=== PATIENT | female | born 1955 | race Caucasian/White ===

== ENCOUNTER 2019-10-03 15:24 | Outpatient (CLI) | payer OTHER, SELFPAY ==
--- NOTE | 2019-10-03 15:28 | ECG_ITS ---
Measurements Intervals [place] Rate: 76 P: 56 MA: 162 QRS: 5 QRSD: 90 T: 17 QT: 355 QTc: 400 Interpretive Statements SINUS RHYTHM VOLTAGE CRITERIA FOR LVH CONSIDER INFERIOR INFARCT, AGE INDETERMINATE BASELINE ARTIFACT- I, II, AVR, AVL, AVF ABNORMAL ECG Electronically Signed On 10-03-2019 15:42:36 ZUMBA INSTRUCTOR by Tiburcio Mata D.O.
== END 2019-10-03 15:25 | disposition home or self-care (01) ==
LOC: ANHSURGERY 15:28
PROVIDERS: PCP Family Medicine; Visit Provider Orthopaedic Surgery
DX: E78.00 Pure hypercholesterolemia, unspecified (principal); R94.31 Abnormal electrocardiogram [ECG] [EKG]
CPT/HCPCS: 93005

== ENCOUNTER 2019-10-11 01:52 | Day surgery (SDC) | payer OTHER, SELFPAY ==
[2019-10-01 15:51] VITALS: BMI 33.0
[2019-10-11] VITALS (8 sets, daily range): BP systolic 161–178; BP diastolic 50–101; PULSE 70–83; RESP 12–20; TEMP 36.2–36.6; O2SAT 92–100
--- NOTE | ~2019-10-11 | XR_ITS ---
EXAMINATION: XR surgery orthopedic EXAM DATE: 10/11/2019 09:07 INDICATION: Left knee medial subchondroplasty. TECHNIQUE: Fluoroscopy used during XR surgery orthopedic performed by Dr. Leoncio Vernon MD. The DAP for this procedure was 16 cGycm2. No prior FINDINGS: There are images of knee and instrumentation. Correlate with procedure note. IMPRESSION: Fluoroscopy used during XR surgery orthopedic. Reviewed, dictated and finalized at location A. CAL RECORD CODER
[2019-10-11] MEDS: LACTATED RINGERS 1,000 ML 30 ML IV CONT ×2 (06:35→09:05)
--- NOTE | 2019-10-11 06:52 | WPDANESEPPF ---
Anes - Initial Pre Proc Eval Procedure: Operation Date: 10/11/19 07:30 Proposed Procedures p Left Knee Arthroscopy, Partial Medial Meniscectomy, Partial Lateral Meniscectomy, Chondroplasty, Synovectomy, Medial Femoral Condyle, Subchondroplasty, Proceed As Indicated - Leoncio Vernon MD Date/Time: 10/11/19 06:52 Surgeon: Leoncio Vernon MD Pre Op Diagnosis: Left Knee Pain,medial lateral meniscal tear Patient Data Age: 64 Gender: F Height: 5 ft 6 in Weight: 92.99 kg Allergies Allergy/AdvReac Type Severity Reaction Status Date / Time Penicillins Allergy Unknown Unknown Verified 10/01/19 15:45 sulfamethoxazole Allergy Unknown Rash Verified 10/01/19 15:46 [From Bactrim] trimethoprim [From Bactrim] Allergy Unknown Rash Verified 10/01/19 15:46 Home Medications Medication Instructions Recorded Confirmed Type atorvastatin 20 mg tablet 20 mg PO DAILY #90 tablet 07/22/19 10/01/19 Rx aspirin 81 mg tablet,delayed 81 mg PO DAILY 09/20/19 10/01/19 History release omega-3 fatty acids-fish oil 360 1 cap PO BID 09/20/19 10/01/19 History mg-1,200 mg capsule calcium carbonate-vitamin D3 1 cap PO DAILY 10/01/19 10/01/19 History [Calcium 600 with Vitamin D3] cholecalciferol (vitamin D3) 2,000 unit PO DAILY 10/01/19 10/01/19 History pilocarpine HCl 1 drp OPHTHALMIC (EYE) PRN PRN 10/01/19 10/01/19 History Patient hx anesthesia problems: none Family hx anesthesia problems: none PMFSH Past Medical History Medical History Acute medial meniscus tear of left knee Arthritis of knee, left Lateral meniscus tear, current Mixed hyperlipidemia Pathological fracture of femur Sleep apnea Sprain of medial collateral ligament of left knee Vitamin D deficiency Weight gain Family History Family History Mother Family history of glaucoma Acute myocardial infarction, Onset Age: 80 Father Acute myocardial infarction, Onset Age: 61 Family history of rheumatic fever Other Diabetes mellitus Hypertension Social History Social History Smoking status: Former smoker Second hand tobacco smoke exposure: No Smoking end date: 08/22/88 Alcohol intake: current Anes - Eval Final PreProcedure Day of Procedure 10/11/19 06:52 Patient weight: obese Heart: regular rate and rhythm Lungs: clear to auscultation Airway: Mallampati scale class II Neurological: alert and oriented Last oral intake: >/= 8 hours ASA classification: III Emergent: no Anesthetic plan: proceed Anesthesia type and monitoring: general LMA and standard monitoring Informed Consent: The patient's anesthetic plan and its attendant risks and benefits were discussed with the patient/family/POA. Questions were solicited and answers provided to the satisfaction of the patient/family/POA.
--- NOTE | 2019-10-11 06:56 | WPDHPUPDATE1 ---
History and Physical Update Update Date/Time: 10/11/19 06:56 History and Physical has been reviewed, including an updated exam of the patient. There are NO changes in the patient's condition. Risks, benefits, and alternatives have been discussed and questions answered. Patient agrees to proceed with procedure.
[2019-10-11] MEDS: ceFAZolin 2 GM/D5W 50 ML 2 GM/50 ML BAG IVPB (07:31)
[2019-10-11] MEDS: IBUPROFEN IV 800 MG/200 ML 800 MG/200 ML BAG 400 MG IVPB (07:39)
[2019-10-11] MEDS: BUPIVACAINE/EPINEPHRINE 0.5% 10 ML VIAL INFILTRATE (07:43)
--- NOTE | 2019-10-11 09:31 | PM.PROC ---
Procedure Note - Detailed Date of procedure: 10/11/19 Pre-op diagnosis: Left Knee Pain,medial lateral meniscal tear Medial femoral condyle insufficiency fracture, chondromalacia patellofemoral and medial compartments Post-op diagnosis: same Procedure performed: Left knee arthroscopy with partial medial and lateral meniscectomy, chondroplasty, synovectomy, sub chondroplasty medial femoral condyle Description of procedure: Indications: 64-year-old woman with severe left knee pain. Injury 2 months ago. MRI shows medial and lateral meniscus tear, chondromalacia insufficiency fracture medial femoral condyle. Patient failed non operative treatment with therapy, home exercises, activity modifications and anti-inflammatories. Pain on a daily basis with weight-bearing activity. Presents now for operative treatment. Informed consent given by patient. Operative extremity marked in preoperative holding area. Patient received intravenous antibiotics. Patient brought to operating room and underwent general anesthetic by anesthesia team. Positioned supine on operating room table. Left leg placed into a posterior thigh leg garza. Foot of the table dropped to 90? and right leg padded out of the field. Time-out performed confirming patient, site of surgery and plan. Left knee prepped and draped in usual sterile surgical fashion using ChloraPrep skin solution. Standard arthroscopic portals made by using a 11 blade knife for the anterior lateral portal 1st. Capsule penetrated bluntly. Camera and inflow started. The below operative findings noted. Intra-articular visualization used to position the anterior medial portal using 22 gauge spinal needle. A 11 blade knife used for the skin and blunt penetration of the capsule. 4.7 millimeter arthroscopic shaver introduced and partial medial meniscectomy of the loose and torn portion performed. Shaver then positioned in the lateral compartment and partial lateral meniscectomy performed. Edge of meniscus completed with arthroscopic Wand. Arthroscopic Wand used to perform chondroplasty of the patellofemoral articulation and the medial femoral condyle. Shaver reintroduced and a synovectomy performed of the anterior fat pad and extensive synovium as well as medial and lateral plica. Bleeding points coagulated with Wand. Knee inspected, no loose pieces noted. 1 liter of irrigant infused and suction out. Arthroscopic cannulas removed. Skin closed with 4 nylon interrupted suture. Local anesthetic with 0.25% Marcaine. Fluoroscopy then position for the medial femoral condyle subchondroplasty. Stab incision made over the medial side of the knee and trocar placed into the medial femoral condyle and verified with image intensification. Calcium sulfate prepared on the back table and injected into the medial femoral condyle. Fluoroscopy views confirmed injection of the material into the condyle. Trocar removed and wound thoroughly irrigated with antibiotic solution. Skin closed with 4 nylon interrupted suture. Sterile dressing applied. Patient awoken from anesthesia, extubated and taken to recovery room in stable condition. All sponge needle and instrument counts correct at the end of the case. Implants: Harmeet calcium sulfate injectable artificial bone graft Anesthesia: GLMA Surgeon: Leoncio Vernon MD Estimated blood loss (mL): 5 Drains: No Packing: No Pathology: none sent Complications: None Condition: stable Disposition: PACU Findings: Grade 2 chondromalacia medial femoral condyle, grade 3 chondromalacia patella and patella foot femoral articulation, minimal degenerative changes of lateral femoral condyle. Partial tear anterior horn and body lateral meniscus, partial tear of the body and anterior horn of the medial meniscus. PCL and ACL intact. Significant synovitis peripatellar, medial and lateral compartment, anterior and lateral anterior portions.
--- NOTE | 2019-10-11 11:33 | SUR.PHASEII ---
1030 dr beasley office notified about getting a order for a walker, they will send it to [facility]. 1035 PT notified to do walker training with pt
== END 2019-10-11 11:38 | disposition home or self-care (01) ==
PROVIDERS: PCP Family Medicine; Visit Provider Orthopaedic Surgery
PROC: (CPT 29870; principal; 2019-10-11 07:30)
DX: S83.242A Other tear of medial meniscus, current injury, left knee, initial encounter (principal); S83.282A Other tear of lateral meniscus, current injury, left knee, initial encounter; M84.452A Pathological fracture, left femur, initial encounter for fracture; X50.0XXA Overexertion from strenuous movement or load, initial encounter; E78.2 Mixed hyperlipidemia; G47.30 Sleep apnea, unspecified; E55.9 Vitamin D deficiency, unspecified; Z79.82 Long term (current) use of aspirin; Z87.891 Personal history of nicotine dependence; E66.9 Obesity, unspecified; Z68.33 Body mass index [BMI] 33.0-33.9, adult
CPT/HCPCS: 29880; 97116; J0690; J1100; J1741; J2250; J2405; J2704; J3010; J7120

== ENCOUNTER 2022-03-11 12:09 | Outpatient (CLI) | payer MEDICARE, SELFPAY ==
--- NOTE | 2022-03-11 12:27 | ECG_ITS ---
Measurements Intervals [place] Rate: 74 P: 69 ME: 146 QRS: 49 QRSD: 91 T: 29 QT: 364 QTc: 405 Interpretive Statements SINUS RHYTHM NORMAL ECG Electronically Signed On 03-11-2022 16:16:48 CDT by Tiburcio Mata D.O.
== END 2022-03-11 12:10 | disposition home or self-care (01) ==
LOC: ANHCARD 12:12
PROVIDERS: PCP Family Medicine; Visit Provider Family Medicine
DX: I10 Essential (primary) hypertension (principal)
CPT/HCPCS: 93005

== ENCOUNTER 2022-06-24 09:14 | Outpatient (CLI) | payer MEDICARE, SELFPAY ==
--- NOTE | ~2022-06-24 | DEXA_ITS ---
Bone Density Report Name: HALLE ELI Age: 67 Sex: Female Ethnicity: White Date of : 1955 Indication: postmenopausal; screening for osteoporosis; prior fracture; Referring Provider: SATINDER ASH Study: Bone densitometry was performed. Exam Date: June 24, 2022 Accession number: [id number] Bone Density: Region BMD T-score Z-score Classification AP Spine(L1-L4) 0.874 -1.6 0.4 Osteopenia Femoral Neck (Left) 0.622 -2.0 -0.3 Osteopenia Total Hip (Left) 0.800 -1.2 0.3 Osteopenia Femoral Neck (Right) 0.610 -2.1 -0.4 Osteopenia Total Hip (Right) 0.759 -1.5 -0.1 Osteopenia Total Hip Mean 0.779 -1.4 0.1 Osteopenia World Health Organization criteria for BMD impression classify patients as: Normal (T-score at or above -1.0), Osteopenia (T-score between -1.0 and -2.5), or Osteoporosis (T-score at or below -2.5). 10-year Fracture Risk(1): Major Osteoporotic Fracture 19% Hip Fracture 3.4% Reported Risk Factors: [place] (), Neck BMD=0.610, BMI=30.3, previous fracture (1) FRAX(R) Version 3.08. Fracture probability calculated for an untreated patient. Fracture probability may be lower if the patient has received treatment. Clinical Information Provided by Patient: Has had a low trauma fracture Has used the following medications: Vitamin D, Calcium Patient maximum height was 65 Menopause Age: 49 Drinks caffeinated beverages Onset of menses at age 11 Number of children 0 Impression: The patient has low bone mass, based on the Right Femoral Neck T-score. The patient has an estimated ten-year risk of hip fracture of 3.4% and an estimated ten-year risk of major fracture of 19%, based on the WHO FRAX algorithm. The patient has risk factors, including: previous fracture. Discussion: BONE DENSITY IS LOW AT ONE OR MORE SKELETAL SITES. THE PATIENT'S BMD AND CLINICAL RISK FACTORS CONTRIBUTE TO THIS PATIENT'S INCREASED RISK OF FRACTURE. This patient's lowest T-score is low at one or more skeletal sites. It meets the World Health Organization's (WHO) criteria for ?low bone mass? (T-score between -1.0 and -2.5). The patient's 10-year risk of hip fracture as calculated by FRAX exceeds the threshold where pharmacological therapy is recommended by the National Osteoporosis Foundation (NOF). However, all treatment decisions require clinical judgment and consideration of individual patient factors, including patient preferences, comorbidities, previous drug use, risk factors not captured in the FRAX model (e.g., frailty, falls, vitamin D deficiency, increased bone turnover, interval significant decline in bone density) and possible under or overestimation of fracture risk by FRAX. The patient should follow a healthful lifestyle (good nutrition with adequate calcium and vitamin D, and appropri
== END 2022-06-24 09:15 | disposition home or self-care (01) ==
PROVIDERS: PCP Family Medicine; Visit Provider Physician Assistant
DX: Z78.0 Asymptomatic menopausal state (principal); M85.88 Other specified disorders of bone density and structure, other site; M85.852 Other specified disorders of bone density and structure, left thigh; M85.851 Other specified disorders of bone density and structure, right thigh
CPT/HCPCS: 77080

== ENCOUNTER 2022-12-09 13:23 | Outpatient (CLI) | payer MEDICARE, SELFPAY ==
--- NOTE | ~2022-12-09 | XR_ITS ---
XR chest 2V DATE: 12/09/2022 13:49 INDICATION: Nicotine dependence TECHNIQUE: PA and lateral views COMPARISON: 12/20/2017 two-view chest FINDINGS: Normal heart size. No hilar or mediastinal enlargement. No pulmonary infiltrate or consolidation, pleural effusion or pulmonary vascular congestion or pneumo thorax. Osteopenia. IMPRESSION: No active cardiopulmonary disease Osteopenia Reviewed, dictated and finalized at location L.
== END 2022-12-09 13:24 | disposition home or self-care (01) ==
PROVIDERS: PCP Family Medicine; Visit Provider Physician Assistant
DX: Z87.891 Personal history of nicotine dependence (principal); M85.88 Other specified disorders of bone density and structure, other site
CPT/HCPCS: 71046

== ENCOUNTER 2023-07-22 14:28 | Outpatient (CLI) | payer MEDICARE, SELFPAY ==
--- NOTE | ~2023-07-22 | CT_ITS ---
EXAMINATION: CT lung screening DATE: 07/22/2023 14:52 INDICATION: Personal history of nicotine dependence TECHNIQUE: Computed tomography (CT) of the chest was performed without intravenous contrast. The dose -length product was 150.58 mGy-cm. Automated exposure control and iterative reconstruction technique were employed. COMPARISON: None FINDINGS: Lung bases are unremarkable. Heart size normal. There is atherosclerosis of the aorta and c oronary arteries. There are calcified granulomas of the liver and spleen. There are liver cysts. No e ndobronchial lesions. No pneumothorax. No acute osseous abnormality. Mild thoracic spondylosis. There are small 2 mm nodules in the upper lobes. There is a 3 mm left fissural nodule. IMPRESSION: 1. Lung-RADS category 2: Benign appearance or behavior. Continue annual screening with noncontrast lo w-dose chest CT in 12 months. Reviewed, dictated and finalized at location B. ECTOR IMPRESSION: 1. Lung-RADS category 2: Benign appearance or behavior. Continue annual screeni ng with noncontrast low-dose chest CT in 12 months.
== END 2023-07-22 14:29 | disposition home or self-care (01) ==
PROVIDERS: PCP Family Medicine; Visit Provider Physician Assistant
DX: Z12.2 Encounter for screening for malignant neoplasm of respiratory organs (principal); Z87.891 Personal history of nicotine dependence
CPT/HCPCS: 71271

== ENCOUNTER 2023-12-14 15:29 | Outpatient (CLI) | payer MEDICARE, SELFPAY ==
--- NOTE | ~2023-12-14 | XR_ITS ---
EXAMINATION: XR cervical spine 4-5V DATE: 12/14/2023 15:50 INDICATION: Neck pain. TECHNIQUE: 4 views of cervical spine including flexion and extension views were obtained. COMPARISON: None. FINDINGS: Bone alignment is normal. There is no abnormal motion with flexion or extension. Vertebral body heights are normal. There is mildly decreased disc height at C4-C5 and moderately decreased disc height at C5-C6 and C6-C7. There is multilevel uncovertebral joint osteoarthritis, severe bilaterall y at C5-C6 and C6-C7. There is multilevel mild facet joint osteoarthritis. There is mild central everett l stenosis at C5-C6. No prevertebral soft tissue swelling. IMPRESSION: 1. Moderate cervical spondylosis. Reviewed, dictated and finalized at location E.
== END 2023-12-14 15:30 | disposition home or self-care (01) ==
LOC: ANHIMG 15:34
PROVIDERS: PCP Family Medicine; Visit Provider Family Medicine
DX: M47.892 Other spondylosis, cervical region (principal)
CPT/HCPCS: 72050

== ENCOUNTER 2024-02-24 01:14 | Day surgery (SDC) | payer MEDICARE, SELFPAY ==
[2024-02-13 14:36] VITALS: BMI 27.8
[2024-02-24 09:26] VITALS: BP 167/75; PULSE 68; RESP 16; TEMP 35.9; O2SAT 100; BMI 27.8
[2024-02-24] MEDS: LACTATED RINGERS 1,000 ML 150 ML IV CONT (09:38)
--- NOTE | 2024-02-24 09:38 | WPDANESEPPF ---
Anes - Initial Pre Proc Eval Procedure: Operation Date: 02/24/24 15:30 Proposed Procedures p Colonoscopy - Piotr Quiroz MD Date/Time: 02/24/24 09:38 Surgeon: Piotr Quiroz MD Pre Op Diagnosis: Positive Cologuard Patient Data Age: 69 Gender: F Height: 1.68 m Weight: 78.2 kg Last Vital Signs Temp 96.6 F L 02/24/24 09:26 Pulse 68 02/24/24 09:26 Resp 16 02/24/24 09:26 BP 167/75 H 02/24/24 09:26 Pulse Ox 100 02/24/24 09:26 O2 Del Method Room Air 02/24/24 09:26 Allergies Allergy/AdvReac Type Severity Reaction Status Date / Time Penicillins Allergy Unknown Unknown Verified 02/24/24 09:25 sulfamethoxazole Allergy Unknown Rash Verified 02/24/24 09:25 [From Bactrim] trimethoprim [From Bactrim] Allergy Unknown Rash Verified 02/24/24 09:25 Home Medications Medication Instructions Recorded Confirmed Type aspirin 81 mg tablet,delayed 81 mg PO DAILY 09/20/19 02/24/24 History release (Adult Aspirin Regimen) calcium carbonate 600 mg-vitamin 1 cap PO DAILY 10/01/19 02/24/24 History D3 12.5 mcg (500 unit) capsule (Calcium 600 with Vitamin D3) pilocarpine HCl 1 % eye drops 1 drp ophthalmic (eye) PRN PRN Dry 10/01/19 02/24/24 History Eyes alendronate 70 mg tablet (Fosamax) 70 mg PO WEEKLY #12 tabs 10/24/23 02/24/24 Rx atorvastatin 20 mg tablet 20 mg PO DAILY #90 tabs 12/14/23 02/24/24 Rx losartan 50 mg tablet 50 mg PO DAILY hypertension #90 12/14/23 02/24/24 Rx tabs bimatoprost 0.01 % eye drops 1 drp LEFT EYE DAILY 02/21/24 02/24/24 History (Bebeto) Patient hx anesthesia problems: none Family hx anesthesia problems: none Results Review: All pre-operative results and documents have been reviewed as part of the pre-operative evaluation. [facility] Past Medical History Medical History Acute medial meniscus tear of left knee Arthritis of knee, left Colon cancer screening (~12/2020) Cologuard negative Glaucoma Lateral meniscus tear, current Mixed hyperlipidemia Osteopenia Diffuse, on Fosamax, started 2022 Repeat Dexa 06/2024 Pathological fracture of femur Sleep apnea Sprain of medial collateral ligament of left knee Vitamin D deficiency Weight gain Surgical History Surgical History History of arthroscopic knee surgery Family History Family History Mother Family history of glaucoma Acute myocardial infarction, Onset Age: 80 Father Acute myocardial infarction, Onset Age: 61 Family history of rheumatic fever Other Diabetes mellitus Hypertension Social History Social History Smoking packs per day: 1.5 Smoking cigarettes per day: 30.0 Years smoked: 16 Smoking pack-years: 24.00 Smoking status: Former smoker Tobacco type: cigarettes Second hand tobacco smoke exposure: No Smoking end date: 08/22/89 Alcohol intake: never Alcohol use details: Occasional Substance use: never Substance use type: does not use Lack of Transportation: No Lack of Food: Never True Current Housing: I Have Housing Concerned About Future Housing: No Difficulty Paying Gas/Electric Bills: No Difficulty Paying for Meds: No Currently Unemployed: No Education: Master's Degree or Higher Difficulty w/ Childcare or Family Care: No Living arrangements: alone Occupation/Education: retired Gender identity (if verbalized by the patient): Female Spiritual care concerns: No Anes - Eval Final PreProcedure Day of Procedure 02/24/24 09:38 Patient weight: normal Heart: regular rate and rhythm Lungs: clear to auscultation Airway: Mallampati scale class II Neurological: alert and oriented Last oral intake: >/= 8 hours ASA classification: III Emergent: no Anesthetic plan: proceed
--- NOTE | 2024-02-24 09:49 | PM.HPGS ---
History of Present Illness History of Present Illness Consent: Risks, benefits, and alternatives have been discussed and questions answered. Patient agrees to proceed with procedure. Chief complaint: Positive Cologuard Narrative: Jessica Ochoa is a 69 year old female here with + cologuard, last colonoscopy about 20 years ago Review of Systems Review of Systems: All systems reviewed & are unremarkable except as noted in HPI and below PMFSH Past Medical History Medical History (Updated 02/24/24 @ 09:49 by Piotr Quiroz MD) Acute medial meniscus tear of left knee Arthritis of knee, left Colon cancer screening (~12/2020) Cologuard negative Glaucoma Lateral meniscus tear, current Mixed hyperlipidemia Osteopenia Diffuse, on Fosamax, started 2022 Repeat Dexa 06/2024 Pathological fracture of femur Positive colorectal cancer screening using Cologuard test Sleep apnea Sprain of medial collateral ligament of left knee Vitamin D deficiency Weight gain Surgical History Surgical History History of arthroscopic knee surgery Family History Family History Mother Family history of glaucoma Acute myocardial infarction, Onset Age: 80 Father Acute myocardial infarction, Onset Age: 61 Family history of rheumatic fever Other Diabetes mellitus Hypertension Social History Social History Smoking packs per day: 1.5 Smoking cigarettes per day: 30.0 Years smoked: 16 Smoking pack-years: 24.00 Smoking status: Former smoker Tobacco type: cigarettes Second hand tobacco smoke exposure: No Smoking end date: 08/22/89 Alcohol intake: never Alcohol use details: Occasional Substance use: never Substance use type: does not use Lack of Transportation: No Lack of Food: Never True Current Housing: I Have Housing Concerned About Future Housing: No Difficulty Paying Gas/Electric Bills: No Difficulty Paying for Meds: No Currently Unemployed: No Education: Master's Degree or Higher Difficulty w/ Childcare or Family Care: No Living arrangements: alone Occupation/Education: retired Gender identity (if verbalized by the patient): Female Spiritual care concerns: No Meds Home Medications and Allergies Home Medications Medication Instructions Recorded Confirmed Type aspirin 81 mg tablet,delayed 81 mg PO DAILY 09/20/19 02/24/24 History release (Adult Aspirin Regimen) calcium carbonate 600 mg-vitamin 1 cap PO DAILY 10/01/19 02/24/24 History D3 12.5 mcg (500 unit) capsule (Calcium 600 with Vitamin D3) pilocarpine HCl 1 % eye drops 1 drp ophthalmic (eye) PRN PRN Dry 10/01/19 02/24/24 History Eyes alendronate 70 mg tablet (Fosamax) 70 mg PO WEEKLY #12 tabs 10/24/23 02/24/24 Rx atorvastatin 20 mg tablet 20 mg PO DAILY #90 tabs 12/14/23 02/24/24 Rx losartan 50 mg tablet 50 mg PO DAILY hypertension #90 12/14/23 02/24/24 Rx tabs bimatoprost 0.01 % eye drops 1 drp LEFT EYE DAILY 02/21/24 02/24/24 History (Bebeto) Allergies Allergy/AdvReac Type Severity Reaction Status Date / Time Penicillins Allergy Unknown Unknown Verified 02/24/24 09:25 sulfamethoxazole Allergy Unknown Rash Verified 02/24/24 09:25 [From Bactrim] trimethoprim [From Bactrim] Allergy Unknown Rash Verified 02/24/24 09:25 Vital Signs Vital Signs - 24 hr 02/24/24 09:26 Temperature 96.6 F L Pulse Rate 68 Respiratory Rate 16 Blood Pressure 167/75 H Pulse Oximetry 100 Oxygen Delivery Room Air Exam Const: General: comfortable and no acute distress HENMT: Face/Nose/Sinus: Normal nares present Eyes: General: appearance normal, both eyes and all related structures Neck: Neck: no JVD Resp: Auscultation: clear to auscultation bilaterally Cardio: Rate: regular rate Rhythm: regular rhythm GI:
[2024-02-24 10:07] VITALS: BP 121/58; PULSE 67; RESP 16; O2SAT 99
[2024-02-24 10:17] VITALS: BP 126/65; PULSE 64; RESP 16; O2SAT 100
[2024-02-24 10:27] VITALS: BP 146/66; PULSE 62; RESP 16; O2SAT 99
== END 2024-02-24 10:43 | disposition home or self-care (01) ==
PROVIDERS: PCP Family Medicine; Visit Provider Internal Medicine Gastroenterology
PROC: 0DJD8ZZ Inspection of Lower Intestinal Tract, Via Natural or Artificial Opening Endoscopic (ICD-10-PCS; CPT 45378; principal; 2024-02-24 15:30)
DX: R19.5 Other fecal abnormalities (principal); D12.2 Benign neoplasm of ascending colon; K64.8 Other hemorrhoids; K63.89 Other specified diseases of intestine; E78.2 Mixed hyperlipidemia; G47.30 Sleep apnea, unspecified; E55.9 Vitamin D deficiency, unspecified; Z79.82 Long term (current) use of aspirin; Z79.83 Long term (current) use of bisphosphonates; Z98.890 Other specified postprocedural states; Z87.891 Personal history of nicotine dependence; Z82.49 Family history of ischemic heart disease and other diseases of the circulatory system
CPT/HCPCS: 45385; 45380; 88305; J2704; J7120

== ENCOUNTER 2024-07-24 07:10 | Outpatient (CLI) | payer MEDICARE, SELFPAY ==
--- NOTE | ~2024-07-24 | CT_ITS ---
CT Scan of the Chest without Contrast: Clinical Indication: Lung cancer screening, nicotine dependence Technique: Contiguous sections were acquired throughout the chest without intravenous contrast. Dose reduction technique was used on this scan by utilizing automated exposure control and iterative recon struction technique. The dose-length product (DLP) was 84.16 mGy-cm. COMPARISON: 07/22/2023 Findings: There is no evidence of any significant mediastinal, hilar or axillary lymphadenopathy. The coronary artery calcifications are present. There is no evidence of pleural or pericardial effusion. Calcified right upper lobe granuloma noted. Stable tiny left fissural nodule. Images through the upper abdomen reveal calcified splenic granulomas and hepatic cysts. Impression: Stable tiny left fissural nodule, most likely benign. No suspicious abnormality. Reviewed, dictated and finalized at [facility]. FF COMPILING CLERK Impression: Stable tiny left fissural nodule, most likely benign. No suspicious abnormality .
== END 2024-07-24 07:11 | disposition home or self-care (01) ==
PROVIDERS: PCP Family Medicine; Visit Provider Family Medicine
DX: Z12.2 Encounter for screening for malignant neoplasm of respiratory organs (principal); Z87.891 Personal history of nicotine dependence
CPT/HCPCS: 71271

== ENCOUNTER 2024-07-30 08:14 | Outpatient (CLI) | payer MEDICARE, SELFPAY ==
--- NOTE | ~2024-07-30 | DEXA_ITS ---
Bone Density Report Name: HALLE ELI Age: 69 Sex: Female Ethnicity: White Date of : 1955 Indication: osteopenia; prior fracture; Referring Provider: DAVE DAY Study: Bone densitometry was performed. Exam Date: July 30, 2024 Accession number: [id number] Bone Density: Region BMD T-score Z-score Classification AP Spine(L1-L4) 0.994 -0.5 1.7 Normal Femoral Neck (Left) 0.645 -1.8 0.0 Osteopenia Total Hip (Left) 0.810 -1.1 0.5 Osteopenia Femoral Neck (Right) 0.647 -1.8 0.0 Osteopenia Total Hip (Right) 0.764 -1.5 0.1 Osteopenia Total Hip Mean 0.787 -1.3 0.3 Osteopenia World Health Organization criteria for BMD impression classify patients as: Normal (T-score at or above -1.0), Osteopenia (T-score between -1.0 and -2.5), or Osteoporosis (T-score at or below -2.5). 10-year Fracture Risk(1): Major Osteoporotic Fracture 10.0% Hip Fracture 1.7% Reported Risk Factors: [place] (), Neck BMD=0.645, BMI=26.8, previous fracture (1) FRAX(R) Version 3.08. Fracture probability calculated for an untreated patient. Fracture probability may be lower if the patient has received treatment. Previous Exams: Region Exam Age BMD T-score BMD Change BMD Change Date g/cm2 vs Baseline vs Previous AP Spine (L1-L4) 07/30/2024 69 0.994 -0.5 0.119 (13.7%)* 0.119 (13.7%)* 06/24/2022 67 0.874 -1.6 Total Hip(Left) 07/30/2024 69 0.810 -1.1 0.010 (1.3%) 0.010 (1.3%) 06/24/2022 67 0.800 -1.2 Total Hip(Right) 07/30/2024 69 0.764 -1.5 0.006 (0.7%) 0.006 (0.7%) 06/24/2022 67 0.759 -1.5 *Denotes significance at 95% confidence level, LSC for AP Spine = 0.022 g/cm2, LSC for Total Hip = 0.027 g/cm2 Clinical Information Provided by Patient: Has had a low trauma fracture Has used the following medications: Vitamin D, Calcium Patient maximum height was 65 Menopause Age: 49 Drinks caffeinated beverages Onset of menses at age 11 Number of children 0 Impression: The patient has low bone mass, based on the Left Femoral Neck T-score. The patient has an estimated ten-year risk of hip fracture of 1.7% and an estimated ten-year risk of major fracture of 10%, based on the WHO FRAX algorithm. The patient has risk factors, including: previous fracture. No significant bone loss was observed. Discussion: BONE DENSITY IS LOW AT ONE OR MORE SKELETAL SITES. This patient's lowest T-score is low at one or more skeletal sites. It meets the World Health Organization's (WHO) criteria for ?low bone mass? (T-score between -1.0 and -2.5). The patient's 10-year risk of fracture as calculated by FRAX is less than the threshold where pharmacological therapy is recommended by the National Osteoporosis Foundation (NOF). However, all treatment decisions require clinical judgment and consideration of individual patient factors, including patient preferences, comorbidities, previous drug use, risk factors not captured in the FRAX model (e.g., frailty, falls, vitamin D deficiency, increased bone turnover, interval significant decline in bone density) and possible under or overestimation of fracture risk by FRAX. The patient should follow a healthful lifestyle (good nutrition with adequate calcium and vitamin D, and appropriate weight-bearing exercise). Follow-Up: Consider repeating this study in 2 to 3 years to reassess this patient's status, or sooner if there is some new clinical indication. Reported by: LENNY on 07/30/2024 8:44:00 AM. Reviewed, dictated and finalized at location A. JONNY
== END 2024-07-30 08:15 | disposition home or self-care (01) ==
LOC: ANHIMG 08:15
PROVIDERS: PCP Family Medicine; Visit Provider Family Medicine
DX: M85.89 Other specified disorders of bone density and structure, multiple sites (principal); Z78.0 Asymptomatic menopausal state
CPT/HCPCS: 77080

== ENCOUNTER 2025-07-31 16:09 | Outpatient (CLI) | payer MEDICARE, SELFPAY ==
--- NOTE | ~2025-07-31 | CT_ITS ---
EXAMINATION:CT lung screening DATE: 07/31/2025. INDICATION: 26 pack year history of smoking. Follow-up screening exam. TECHNIQUE: Computed tomography (CT) of the chest was performed without intravenous contrast. Automated exposure control and iterative reconstruction technique were employed. The dose-length product (DLP) was 119.71 mGy-cm. COMPARISON: CT lung cancer screening chest 07/24/2024. FINDINGS: Stable 3 to 4 mm size nodule adjacent the interlobar fissure of left lung. No new or additional lesions. No hilar or mediastinal adenopathy. No effusion. Stable cyst of the liver in the right lobe and one in the left lobe. IMPRESSION: 1. Stable findings compared with prior CT examinations. Continue annual screening. Lung RADS category 2 Reviewed, dictated and finalized at location T. OR SOFTWARE DEVELOPMENT ENGINEER IMPRESSION: 1. Stable findings compared with prior CT examinations. Continue annual screeni ng. Lung RADS category 2
--- OUTSIDE RECORDS SUMMARY | 2025-07-31 20:54 | XMS_ITS | Data Portability ---
Author Organization [facility] [place] Address [address] [place] [address] [place] [address] Care Team Providers Care Learning Facilitator Name Role Phone DAVE DAY Primary Care Provider [phone] Assessment No assessment recorded. Plan of Treatment Reminders Order Date Submit Date Provider Last Modified By Organization Details Last Modified Time Details Appointments None recorded. Lab None recorded. Referral None recorded. Procedures None recorded. Surgeries None recorded. Imaging US, pelvis [address], [address], [address], [place], [address], 15:55:56 US, transvagina l [email or web address], [facility] [address], [place], [address], 15:55:56 US, pelvis [address], [facility] [address], [place], [address], 21:21:40 US, transvagina l [email or web address] [facility] [address], [place], [address], 21:21:40 Medication Orders None recorded. Patient TargetsNo targets recorded. Patient InstructionsNo instructions recorded. Reason for Referral None Reported. Results Created Date Observation Date Name Description Value Unit Range Abnormal Flag Note LastModifiedBy Organization Detail LastModifiedTime 12/28/19 24 12/28/2023 US, pelvi s No observ ation record ed. [email or web address] [place] [address], [place], [address], 12/28/2023 14:44:59 12/28/19 24 12/28/2023 US, trans vagin al No observ ation record ed. [email or web address] [place] [address], [place], [address], 12/28/2023 14:44:49 12/28/19 24 12/28/2023 US, pelvi s No observ ation record ed. [email or web address] [address], [place], [address], 12/29/2023 01:47:16 07/09/20 24 07/09/2024 US, pelvi s No observ ation record ed. [email or web address] [place] [address], [place], [address], 07/09/2024 18:04:25 07/09/20 24 07/09/2024 US, trans vagin al No observ ation record ed. [email or web address] [place] [address], [place], [address], 07/09/2024 18:04:35 07/09/20 24 07/09/2024 US, pelvi s No observ ation record ed. [email or web address] [address], [place], [address], 07/09/2024 16:33:59 Result Notes None recorded. Procedures Surgical History Date Name Laterality Status Provider Name and Address Organization Details Recorded Time 4 completed Avis B[facility] 07/11/2024 09:20:49 4 Date of Last Colonoscopy completed [facility] 07/11/2024 09:20:49 [address] [facility] 07/11/2024 09:25:42 4 Date of Last Mammogram completed [facility] 07/11/2024 09:20:49 2 Most Recent Bone Density completed [facility] 12/27/2023 14:07:55 2 Breast Biopsy completed [facility] 12/27/2023 13:59:20 0 Orthopedic Surgery completed [facility] 12/27/2023 13:59:20 9 Date of Last Pap Smear completed [facility] 12/27/2023 14:07:05 LEEP completed [facility] 12/27/2023 13:59:20 Tubal Ligation completed [facility] 12/27/2023 13:59:20 Imaging Results None recorded. Procedure Notes None recorded. Medical Equipment None Reported. Allergies Allergen ID Allergen Name Allergen Category Reaction Reaction Severity Criticality Documentation Date Start Date Code Code System Note Provider Name and Address Organization Details Recorded Time 84200 Bactrim medicatio n hives moderate Not available 12/27/2023 21063 9 RxNorm [facility] 4 13:58:53 28426 Product containin g penicilli n (product) medicatio n Not available Not available Not available 07/11/2024 53452 8001 SNOMED [facility] 4 09:24:18 Medications Name Sig Start Date Stop Date Status Note LastModified by Organization Details LastModified Time losartan 50 mg tablet active Not Available Not Available No t Available atorvastatin 20 mg tablet 07/11 completed Not Available Not Available Not Available pilocarpine 1 % eye drops 07/11 completed Not Available Not Available Not Available atorvastatin 10 mg tablet TAKE 1 TABLET BY MOUTH DAILY active Not Available Not Available No t Available alendronate 70 mg tablet active Not Available Not Available Not Available Lumigan 0.01 % eye drops active Not Available Not Available Not Available Vitals Date Recorded Body weight Body mass index (BMI) Body height Systolic And Diastolic Provider Name and Address Organization Details Last Updated DateTime 12/27/2023 43356.9 g 30.1 kg/m2 167.64 cm 160/68 mm[Hg] [facility] 12/27/2023 14:06:11 Date Recorded Body height Body mass index (BMI) Body weight Systolic And Diastolic Provider Name and Address Organization Details Last Updated DateTime 01/04/2024 167.64 cm 30.3 kg/m2 28606.37 g 157/84 mm[Hg] [facility] 01/04/2024 09:28:52 Date Recorded Body height Body mass index (BMI) Body weight Systolic And Diastolic Provider Name and Address Organization Details Last Updated DateTime 07/11/2024 167.64 cm 25.8 kg/m2 58473.78 g 142/83 mm[Hg] Avis Renteria [facility] 07/11/2024 09:24:04 Social History Question Answer Notes LastModified by Organizat ion Details LastModified Time Do You Have An Advance Directive? Yes [email or web address] Information n ot available 07/11/2024 How Many Years Have You Consumed Alcohol? 50 Information not available 12/27/2023 Are You Blind Or Do You Have Difficulty Seeing? Yes Information not available 12/27/2023 What Is Your Level Of Caffeine Consumption? Moderate Information not available 12/27/2023 How Much Tobacco Do You Chew? None Information not available 12/27/2023 In The 14 Days Before Symptom Onset, Have You Had Close Contact With A Laboratory-confirme d COVID-19 While That Case Was Ill? No Information n ot available 12/27/2023 In The 14 Days Before Symptom Onset, Have You Had Close Contact With A Person Who Is Under Investigation For COVID-19 While That Person Was Ill? No Information not available 12/27/2023 Have You Been To An Area Known To Be High Risk For COVID-19? No Information not available 12/27/2023 Are You Deaf Or Do You Have Serious Difficulty Hearing? No Information not available 12/27/2023 What Type Of Diet Are You Following? CARDIAC Information n ot available 12/27/2023 What Is The Highest Grade Or Level Of School You Have Completed Or The Highest Degree You Have Received? [id number] Information not available 12/27/2023 Are There Any Guns Present In Your Home? No Information not available 12/27/2023 Do You Use Your Seat Belt Or Car Seat Routinely? Yes Information not available 12/27/2023 Do You Have Smoke And Carbon Monoxide Detectors In Your Home? Yes Information not available 12/27/2023 At What Age Did You Start Smoking Tobacco? 17 Information not available 12/27/2023 How Much Tobacco Do You Smoke? 1 PPD Information not available 12/27/2023 Do You Use Sunscreen Routinely? Yes Information not available 12/27/2023 How Many Years Have You Smoked Tobacco? 16 Information not available 12/27/2023 Have You Used IV Drugs? No Information not available 12/27/2023 Sex: Unknown Functional Status Question Answer Note LastModified by Organizat ion Details LastModified Time Do you use any illicit or recreational drugs? No Information not available 12/27/2023 What is your level of alcohol consumption? Occasional Information not available 12/27/2023 Are you able to walk independently without assistance or assistive devices? YESWOREST Information not available 12/27/2023 What is your occupation? Retired Information not available 12/27/2023 What is your exercise level? Moderate Information not available 12/27/2023 Mental Status Question Answer Note LastModified by Organization D etails LastModified Time Do you feel stressed (tense, restless, nervous, or anxious, or unable to sleep at night)? [id number] Information not available 12/27/2023 Family History Relationship Description Onset Age of this Age Resolved Age Notes LastModified by Organization Details LastModified Time Mother Hypertensive disorder [email or web address] Not available 2023 13:58:57 Mother Heart disease [email or web address] Not available 2023 13:58:57 Father Heart disease [email or web address] Not available 2023 13:58:57 Medical History Condition Response Allergies (Food, seasonal, environmental ) Y Hypertension Y High Cholesterol Y Gynecological History Statement/Question Response Date of Last Mammogram 01/13/2024 N STIs/STDs Y Was last menstrual period normal Y HPV Vaccine N Duration of Flow (days) 6 Current Control Method Tubal Ligat ion If Post Menopausal, Age at Menopause 49 Date of Last Colonoscopy 02/24/2024 Frequency of Cycle (Q days) 7 Most Recent Bone Density 06/24/2022 Sexually Active? N Date of DEXA bone scan 06/24/2022 Age of first menstrual cycle 11 Date of Last Pap Smear 09/25/2018 Sexual Problems? N LMP Unknown 02/24/2024 N Obstetrics History GPAL:G 2 P 0 0 2 0 Type Value Induced 2 Total 2 Past Encounters Encounter ID Performer Location Encounter Start Date Encounter Closed Date Diagnosis/Indication Diagnosis SNOMED-CT Code Diagnosis ICD10 Code Diagnosis IMO Codes Diagnosis Note [id number] RAJWINDER MAYORGA MD [place] [address] [address] 12/27/2023 13:27:19 12/27/2023 14:44:35 Uterine leiomyoma 60372050 D25.9 - first found 2 years ago on US, associated pelvic pressure and increased urinary frequency- no incomplete emptying or incontinen ce symptoms; no pelvic pain- update pelvic US- discussed options including expectant management vs surgical management with [facility], myomectomy or hysterecto my pending US results- f/u after [place] [id number] Randolph Burciaga MD [place] [address] [address] 12/28/2023 09:11:55 12/28/2023 10:06:47 Uterine leiomyoma 78655152 D25.9 R10.2 [id number] RAJWINDER MAYORGA MD [place] [address] [address] 01/04/2024 09:20:50 01/05/2024 11:29:28 Uterine leiomyoma 62462717 D25.9 - first found 2 years ago on US, associated pelvic pressure and increased urinary frequency- no incomplete emptying or incontinen ce symptoms; no pelvic pain- pelvic US demonstrat es 4-5 fibroids, largest 4cm, no apparent compressio n of bladder or rectum- discussed options including expectant management vs surgical management with [facility], myomectomy or hysterecto my- patient desires expectant management ; will repeat US in 6 months to ensure stability of fibroids; will reassess sooner if symptoms worsen [id number] Randolph Burciaga MD [place] [address] [address] 07/09/2024 13:35:08 07/09/2024 14:09:38 Uterine leiomyoma 05226158 D25.9 [id number] RAJWINDER MAYORGA MD [place] [address],[facility] [place] [address] 07/11/2024 09:11:16 07/11/2024 10:34:08 Uterine leiomyoma 84316189 D25.9 - first found 2 years ago on US, associated pelvic pressure and increased urinary frequency- no incomplete emptying or incontinen ce symptoms; no pelvic pain- pelvic US 07/09 demonstrat es stable to smaller size of fibroids, no new masses seen- patient to call if symptoms worsen, otherwise continue expectant management Health Concerns Section Related Observation LastModified by Organization Detai ls LastModified Time None Recorded Concern Status LastModified by Organization Details LastModified Time None Recorded Advance Directives Directive Y: Payers Insurance Date Sequence Insurance Name Policy Number Policy [place] Covered Member ID Ragsdale Member ID Guarantor Name 07/14/2024 1 [facility] (MEDICARE REPLACEMENT/A DVANTAGE - PPO) [id number] Jessica Ochoa [id number] Jessica Ochoa Notes Date Note Type Note Provider Name and Address Organization Details Recorded Time 12/27/2023 text/html Presents to establish care and discuss uterine fibroids. Reports pelvic discomfort, worse with laying down and sleeping. Increased pressure on bladder. No hx of fibroids prior to this. Reports menopause around 2001. No postmenopausal bleeding. No weight gain or weight loss. No bloating or early satiety. No incontinence, no issues with emptying bladder. RAJWINDER MAYORGA MD [address], [place], [address], [facility] 12/27/2023 14:43:55 01/04/2024 text/html Patient presents for follow up of uterine fibroids and pelvic US. Intermittent episodes of pelvic pressure, mostly at night when laying down. No PMB. No pelvic pain affecting activities. RAJWINDER MAYORGA MD [address], [place], [address], [facility] 01/04/2024 23:35:15 07/11/2024 text/html Patient presents for ultrasound follow up. Was seen in 12/2023 for pelvic pressure with laying down, at that time pelvic US demonstrated 4-5 fibroids, with the largest being 4cm. She desired expectant management. Since then, she has lost weight and has had improved pain and pressure. Pelvic US on 07/09 demonstrated stable to smaller size of uterine fibroids. No new changes otherwise. RAJWINDER MAYORGA MD [address], [place], [address], [facility] 07/11/2024 10:29:44 OBGyn Episode Ob Episode Information Episode Created Date Number of Fetuses Patient Bloodtype Patient rh Status Prepregnancy Weight lbs Domestic Partner Domestic Partner Phone Father Name Deputy Sheriff Generalist/Bailiff Status 12/27/19 24 1 CLOSED Fetus Data First Name Last Name Admitted to NICU Weight (g) Sex Living Outcome Pediatric Complications Fetus ID Race Codes Race Delivery Type , Induced [id number] Manuel Calculation Initial Manuel Date Initial Exam Date Initial Exam Provider Initial Ultrasound Date Last Menstrual Period Date Ultra Sound Weeks Gestation 0 Eighteen To Twenty Week Manuel Update Ultra Sound Date Fundal Height At Umbil Quickening Date Ultra Sound Latest Weeks Gestation Final Manuel Confirmed By Final Manuel Confirmed Date Final Manuel Date Ultra Sound Latest Days Gestation 0 0 Menstrual History Last Menstrual Date Menses Monthly On Bcp Conception Prior Menses Frequency Hcg Plus Date Menarche Onset Age Delivery Information Delivery Date Delivery Type Labor Anesthesia Weeks Gestation Incision Type Labor Labor Length Hrs Delivered By Post Complications Tubal Sterilization Discharge Date Comments 7 Discharge Information Feeding Method Contraceptive Method Maternal HG B and HCT Levels Ob Episode Information Episode Created Date Number of Fetuses Patient Bloodtype Patient rh Status Prepregnancy Weight lbs Domestic Partner Domestic Partner Phone Father Name Deputy Sheriff Generalist/Bailiff Status 12/27/19 24 1 CLOSED Fetus Data First Name Last Name Admitted to NICU Weight (g) Sex Living Outcome Pediatric Complications Fetus ID Race Codes Race Delivery Type , Induced [id number] Manuel Calculation Initial Manuel Date Initial Exam Date Initial Exam Provider Initial Ultrasound Date Last Menstrual Period Date Ultra Sound Weeks Gestation 0 Eighteen To Twenty Week Manuel Update Ultra Sound Date Fundal Height At Umbil Quickening Date Ultra Sound Latest Weeks Gestation Final Manuel Confirmed By Final Manuel Confirmed Date Final Manuel Date Ultra Sound Latest Days Gestation 0 0 Menstrual History Last Menstrual Date Menses Monthly On Bcp Conception Prior Menses Frequency Hcg Plus Date Menarche Onset Age Delivery Information Delivery Date Delivery Type Labor Anesthesia Weeks Gestation Incision Type Labor Labor Length Hrs Delivered By Post Complications Tubal Sterilization Discharge Date Comments 5 Discharge Information Feeding Method Contraceptive Method Maternal HG B and HCT Levels
--- OUTSIDE RECORDS SUMMARY | 2025-07-31 20:54 | XMS_ITS | Clinical Summary ---
Author Organization [facility] Building [address] Address [address] [place] [address] Care Team Providers Care Wellness Educator Name Role Phone Holly Gomez MD Primary Care Provider [phone] Brooke Carlton MD Unavailable Allergies No known active allergies Medications atorvastatin (LIPITOR) 20 mg tablet 01/19/2022 Active atorvastatin calcium (ATORVASTATIN ORAL) Active losartan (COZAAR) 50 mg tablet 01/07/2022 Active pilocarpine (PILOCAR) 1 % ophthalmic solution 12/28/2021 Active Active Problems No known active problems Surgical History Surgery Date Site/Laterality Comments KNEE SURGERY 08/22/2019 - 08/21/2020 Right CERVICAL BIOPSY W/ LOOP ELEC TRODE EXCISION TUBAL LIGATION BREAST BIOPSY 03/18/2022 Right Medical History Medical History Date Comments Hypertension Other hyperlipidemia Family History Medical History Relation Name Comments Breast cancer Neg Hx Social History Tobacco Use Types Packs/Day Years Used Date Smoking Tobacco: Former Cigarettes 1.3 16 1 974 - 1990 AUDIT-C Answer Date Recorded Q1: How often do you have a drink containing alc ohol? Never 03/08/2022 Average Number of Drinks Not on file 022 Q3: How often do you have si x or more drinks on one occasion? Never 03/08/2022 Comments No Sex and Gender Information Value Date Recorded Sex Assigned at Not on file Legal Sex Female 7:21 PM PUBLIC RELATIONS SPECIALIST Gender Identity Female 01/18/2025 6:57 AM CDT Sexual Orientation Not on file Occupation Industry Job Start Date Job End Date retired Not on file Not on file Not on file Obstetrics History Para Term AB IAB SAB Ectopic Multiple Livin g Live Births 2 0 2 0 Date Outcome GA Total Labor Labor/2nd/3rd Weight Sex Type Anes PTL Erika A1 A5 Name Clin 1979 AB 1985 AB Last Filed Vital Signs Vital Sign Reading Time Taken Comments Blood Pressure 148/75 03/08/2022 5:13 PM CDT Pulse - - Temperature - - Respiratory Rate - - Oxygen Saturation - - Inhaled Oxygen Concentration - - Weight 86.3 kg (190 lb 3.2 oz) 03/08/2022 5:13 P M CDT Height 167.6 cm (5' 6) 03/08/2022 5:13 PM CDT Body Mass Index 30.7 03/08/2022 5:13 PM CDT Plan of Treatment Health Maintenance Due Date Last Done Comments Colon Cancer Screening-Colonoscopy 1954 Depression Screening 1954 Fall Risk Assessment 1955 Hepatitis C Screening 1955 Osteoporosis Screening-Bone Density Scan 1955 Hepatitis B Screening 01/13/1972 Pneumococcal vaccine 65+ (2 of 2 - PCV) 05/24/2015 05/24/2014 Well Visit 65+ 2019 Covid-19 Vaccine (2024-2 6 season) 2025 11/25/2021, 05/16/2021, 10/30/2020, Additional history exists Influenza Vaccine (#1) 2025 , 04/21/2020, 06/29/2019, Additional history exists Breast Cancer Screening-Mammogram 01/15/2026 01/15/2025, 01/13/2024, 2023, Additional history exists DTaP/Tdap/Td Vaccine (2 - Td or Tdap) 06/12/2030 06/12/2020 Zoster Vaccine Completed 02/05/2020, 10/18/2019 Procedures Procedure Name Priority Date/Time Associated Diagnosis Comments SCREENING MAMMOGRAM BILATERAL W TERRY Schedule Routine, Read Routine (OP Routine) 01/15/2025 10:31 AM CDT Screening mammogram, encounter for from Last 3 Months or Most Recently Relevant to Health Maintenance Results * Screening Mammogram Bilateral W Terry (01/15/2025 10:31 AM CDT) Anatomical Region Laterality Modality Breast Bilateral Mammography Impressions 01/15/2025 11:09 AM CDT Bilateral No evidence of malignancy in either breast. OVERALL BI-RADS FINAL ASSESSMENT: 1 - Negative RECOMMENDATION: Recommend bilateral annual screening mammography. Narrative 01/15/2025 11:09 AM CDT EXAMINATION: Screening Mammogram Bilateral W Terry: 01/15/2025 COMPARISON: Relevant prior studies available at the time of interpretation were reviewed. TECHNIQUE: Mammography was performed with 2D and digital breast tomosynthesis (DBT) images. CAD was utilized. BREAST PARENCHYMAL COMPOSITION: The breasts are heterogeneously dense, which may obscure small masses. FINDINGS: Bilateral There is no suspicious mass, calcification, or architectural distortion in either breast. There are unchanged biopsy marker clips in the right breast. us Self Screening Mammogram IMG MAMMO PROCEDURES Fi nal Result from Last 3 Months or Most Recently Relevant to Health Maintenance Insurance [facility] MEDICARE ADVANTAGE [facility] MEDIC[facility] Address: [facility] [address] [place] [address] MEDICARE GE MCR SUPPLEMENT MEDICARE [employer] PPO [facility] HMO/PPO Address: [address] [address] [place] [address] Care Teams Wellness Educator Relationship Specialty Start Date End Date Holly Gomez MD PCP - General 12/21/18 Brooke Carlton MD [address] [facility], [address] [address] Consulting Physician Obstetrics and Gynecology 02/17/22
== END 2025-07-31 16:10 | disposition home or self-care (01) ==
PROVIDERS: PCP Family Medicine Adolescent Medicine
DX: Z12.2 Encounter for screening for malignant neoplasm of respiratory organs (principal); Z87.891 Personal history of nicotine dependence
CPT/HCPCS: 71271